=== PATIENT | male | born 1940 | race Caucasian/White ===

== ENCOUNTER 2016-07-14 12:43 | Emergency (ER) | payer OTHER ==
[~2016-07-14 12:43] MED LIST: ALBUTEROL0.63 MG/3 NEB; DIFLUCAN200 MG PO; HYDROCODON-ACE1 EAC4 PO; LEVAQUIN750 MG PO; LEVSIN-SL0.125 MG SL; MAALOX PLUS30 ML PO; MEDROL4 M1 PO; METOPROLOL TART25 MG PO; NICODERM 14MG PA1 EA TD; PANTOPRAZOLE SO40 MG PO; XOPENEX0.63 MG/3 NEB; ZESTRIL20 M1 PO; ZESTRIL5 MG PO
[2016-07-14 13:44] LABS: URINE BILIRUBIN NEGATIVE (NEGATIVE); URINE BLOOD 2+ (NEGATIVE); URINE GLUCOSE (UA) NORMAL (NORMAL); URINE KETONE NEGATIVE (NEGATIVE); URINE LEUKOCYTE ESTERASE 2+ (NEGATIVE); URINE NITRATE POSITIVE (NEGATIVE); URINE PROTEIN 2+ (NEGATIVE)
[2016-07-14 14:01] LABS: URINE BACTERIA 2+ (NONE SEEN); URINE SQUAMOUS EPITHELIAL CELL 0-10 /[HPF] (NONE SEEN); URINE WBC TNTC WITH CLUMPING /[HPF] (0-3)
== END 2016-07-14 14:47 | disposition home or self-care (01) ==
LOC: ER 12:43
PROVIDERS: Emergency Medicine
DX: N39.0 Urinary tract infection, site not specified (principal); I10 Essential (primary) hypertension; J44.9 Chronic obstructive pulmonary disease, unspecified; Z85.46 Personal history of malignant neoplasm of prostate; F17.210 Nicotine dependence, cigarettes, uncomplicated; Z79.899 Other long term (current) drug therapy
CPT/HCPCS: 51702; 81001; 87086; 87186; 94664; 99283; 99283-25